=== PATIENT | female | born 1995 | race Caucasian/White ===

== ENCOUNTER 2018-06-06 12:11 | Outpatient (CLI) | payer BC ==
--- NOTE | 2018-06-06 13:00 | RAD ---
Exam: Single view of the abdomen HISTORY: Ureteral calculi COMPARISON: 10/27/2017 FINDINGS: Single view of the abdomen shows a nonspecific, nonobstructive bowel gas pattern. No suspic ious calcifications are seen. The bones are unremarkable. IMPRESSION: Unremarkable exam
--- NOTE | 2018-06-06 13:42 | ULT ---
US Renal Bilateral STANDARD CLINICAL HISTORY: Ureteral calculi, frequency of micturition. STUDY: Renal ultrasound COMPARISON: None. FINDINGS: Right kidney: Echogenicity: Normal. Masses/cysts: None. Hydronephrosis: None. Calcifications: None. Length: 10 cm Left kidney: Echogenicity: Normal. Masses/cysts: None. Hydronephrosis: None. Calcifications: None. Length: 10.3 cm Limited visualization of the urinary bladder is unremarkable. IMPRESSION: Unremarkable renal ultrasound
== END 2018-06-06 12:12 | disposition home or self-care (01) ==
LOC: BICULT 12:11
PROVIDERS: ATTEND Urology
DX: N20.1 Calculus of ureter (principal); R35.0 Frequency of micturition
CPT/HCPCS: 74018; 76770